=== PATIENT | male | born 1940 | race Caucasian/White ===

== ENCOUNTER 2018-10-21 15:33 | Inpatient (IN) | payer MEDICARE ==
[2018-10-21 16:10] LABS: #Basophils 0.1 thou/uL (0.0-0.2); #Eosinphils 0.4 thou/uL (0.0-0.7); #Lymphocytes 1.6 thou/uL (1.20-3.40); #Monocytes 1.3 thou/uL (0.11-0.59); #Neutrophils 12.8 thou/uL (1.40-6.50); %Basophils 0.5 % (0.0-1.0); %Eosinophils 2.7 % (0.0-10.0); %Lymphocytes 9.9 % (21.0-51.0); %Monocytes 7.9 % (0.0-10.0); %Neutrophils 79.1 % (42.0-75.0); Hemoglobin 16.2 g/dL (14.0-18.0); Mean Corpuscular HGB CONC 33.8 g/dL (32.0-36.0); Mean Corpuscular Hemoglobin 30.7 pg (27.0-31.0); Mean Corpuscular Volume 90.9 fL (78.0-98.0); Mean Platelet Volume 9.3 fL (7.4-10.4); Platelet Count 233 thou/uL (130-400); RBC Distribution Width 12.6 % (11.5-14.5); Red Blood Cell (RBC) Count 5.27 mill/uL (4.70-6.10); White Blood Cell (WBC) Count 16.2 thou/uL (4.8-10.8)
[2018-10-21] MEDS ORDERED: Aspirin Chewable 81 MG TAB ONE (16:12)
[2018-10-21] MEDS ORDERED: Enoxaparin Sodium 100 MG/ML SYRINGE ONE (16:12)
[2018-10-21 16:17] LABS: INR-International Normal Ratio 1.2; PTT 30.6 SEC (22.9-36.1); Prothrombin Time 14.7 SEC (12.0-14.7)
[2018-10-21] MEDS ORDERED: Enoxaparin Sodium 30 MG/0.3 ML SYRINGE ONE (16:17)
[2018-10-21] MEDS ORDERED: Enoxaparin Sodium 60 MG/0.6 ML SYRINGE ONE (16:17)
[2018-10-21 16:28] LABS: ALT (SGPT) 30 U/L (8-55); AST (SGOT) 25 U/L (5-34); Albumin 4.5 g/dL (3.4-4.8); Alkaline Phosphatase 59 U/L (40-150); Anion Gap 11 mmol/L (10-20); BUN (Urea Nitrogen) 16 mg/dL (8.4-25.7); Bilirubin, Total 0.8 mg/dL (0.2-1.2); CK (CPK) 401 U/L (30-200); Calc. Creatinine Clearance 0 mL/min (70-130); Calcium 9.8 mg/dL (7.8-10.44); Carbon Dioxide 23 mmol/L (23-31); Chloride 99 mmol/L (98-107); Estimated GFR-MDRD 60; Globulin 2.9 g/dL (2.4-3.5); Glucose 151 mg/dL (83-110); Potassium 3.9 mmol/L (3.5-5.1); Protein, Total 7.4 g/dL (5.8-8.1); Sodium 129 mmol/L (136-145)
--- NOTE | 2018-10-21 16:32 | RAD ---
XR Chest 1 View Portable HISTORY: Dyspnea COMPARISON: None FINDINGS: The heart size is normal. The lungs are well expanded without focal areas of consolidation, pneumothorax or pleural effusions. IMPRESSION: No radiographic evidence of acute cardiopulmonary process.
--- NOTE | 2018-10-21 17:58 | PDOC.FPRHP ---
- History of Present Illness Chief Complaint: afib with RVR History of Present Illness: 78yo male with h/o HTN, DM, HLD presented as a transfer from urgent care for afib with rvr. Pt states he was working in the yard yesterday and woke up feeling wheezy, dry cough, sinus congestion and presented to urgent care for evaluation. At the urgent care pt was found to be in afib with rvr and sent to ED. No medications were given at urgent care. He currently denies any chest pain , SOB, dizziness, headaches or vision changes. No fever/chills, cough as since resolved but still endorses slight wheeze. Pt states he was evaluated within last 2 years for "a fast heart rate" by Dr. Maldonado and was initially placed on Pradaxa and Coreg but workup as since been negative and he has been taken off both medications and started on ASA 81mg. Pt states stress test 2 years ago was negative. Boat Hop- Dr. Maldonado Primary- Dr. Hussein ([facility]) ED Course: Initial afib with RVR, rate of 122, hemodynamically stable, given ASA 325mg, therapeutic lovenox, and 20mg dilt with controlling of rate to 80s. Started on NS @125cc/hr. - Allergies/Adverse Reactions Allergies Allergy/AdvReac Type Severity Reaction Status Date / Time oyster extract Allergy Severe Anaphylaxis Verified 10/21/18 19:59 shellfish derived Allergy Severe Anaphylaxis Verified 10/21/18 19:59 - Home Medications Medication Instructions Recorded Confirmed Type Aspirin [Ecotrin] 81 mg PO DAILY 10/21/18 10/21/18 History Carvedilol 1 tab PO BID 10/21/18 10/21/18 History Fenofibrate Nanocrystallized 1 tab PO DAILY 10/21/18 10/21/18 History [Fenofibrate] Lisinopril 20 mg PO DAILY 10/21/18 10/21/18 History Pravastatin Sodium 40 mg PO HS 10/21/18 10/21/18 History metFORMIN [Glucophage] 850 mg PO BID-WM 10/21/18 10/21/18 History - History PMHx: HTN, HLD, Diabetes, pediatric asthma, allergic rhinitis PSHx: Tonsilectomy, Umbilical Hernia repar 30 years ago FHx: Dad 84- lung cancer (smoker), Mother 93- old age, Brother 49- CAD (smoker), Brother 84- Alzheimers, Brother 73- (smoker) and Diabetes Social: Smoked when young (for 7 years), Occasional Etoh use, No illicit drug use. - Review of Systems General: denies: fever/chills, weight/appetite/sleep changes, night sweats, fatigue Eyes: denies: eye pain, vision changes ENT: reports: nasal congestion. denies: rhinorrhea Respiratory: reports: cough (non productive), congestion. denies: shortness of breath Cardiovascular: denies: chest pain, palpitation, edema Gastrointestinal: denies: nausea, vomiting, diarrhea, constipation, abdominal pain, GI bleeding Genitourinary: denies: incontinence, dysuria, polyuria Skin: denies: rashes, lesions, itching Musculoskeletal: denies: pain, tenderness, stiffness Neurological: denies: numbness, syncope, weakness Psychological: denies: anxiety, depression - Vital signs BP: [142/77] HR: [93] RR: [18] Tmax: [98.2] Pox: [96]% on [RA] Wt: [90kg] - Physical Exam Constitutional: NAD, awake, alert and oriented, well developed HEENT: normocephalic and atraumatic, conjunctiva clear, grossly normal vision, grossly normal hearing Neck: supple, trachea midline Heart: RRR (occasional irregular beats but overall appears to be in sinus), normal S1/S2, no murmurs/rubs/gallops, pulses present, no edema Lungs: other (tight throughout, BL end-expiratory wheeze, no respiratory distress, no focal consolidation) Abdomen: soft, non-tender, bowel sounds present, no masses/distention Musculoskeletal: normal structure Neurological: no focal deficit, normal sensation Skin: no rash/lesions Heme/Lymphatic: no unusual bruising or bleeding Psychiatric: normal mood and affect, good judgment and insight FMR H&P: Results - Labs Result Diagrams: 10/21/18 15:56 10/21/18 15:56 Lab results: WBC 16.2 thou/uL (4.8-10.8) H 10/21/18 15:56 Hgb 16.2 g/dL (14.0-18.0) 10/21/18 15:56 Hct 47.9 % (42.0-52.0) 10/21/18 15:56 MCV 90.9 fL (78.0-98.0) 10/21/18 15:56 Plt Count 233 thou/uL (130-400) 10/21/18 15:56 Neutrophils % 79.1 % (42.0-75.0) H 10/21/18 15:56 Sodium 129 mmol/L (136-145) L 10/21/18 15:56 Potassium 3.9 mmol/L (3.5-5.1) 10/21/18 15:56 Chloride 99 mmol/L (98-107) 10/21/18 15:56 Carbon Dioxide 23 mmol/L (23-31) 10/21/18 15:56 BUN 16 mg/dL (8.4-25.7) 10/21/18 15:56 Creatinine 1.18 mg/dL (0.7-1.3) 10/21/18 15:56 Glucose 151 mg/dL (83-110) H 10/21/18 15:56 Calcium 9.8 mg/dL (7.8-10.44) 10/21/18 15:56 Total Bilirubin 0.8 mg/dL (0.2-1.2) 10/21/18 15:56 AST 25 U/L (5-34) 10/21/18 15:56 ALT 30 U/L (8-55) 10/21/18 15:56 Alkaline Phosphatase 59 U/L (40-150) 10/21/18 15:56 Creatine Kinase 401 U/L (30-200) H 10/21/18 15:56 B-Natriuretic Peptide 345.4 pg/mL (0-100) H 10/21/18 15:56 Serum Total Protein 7.4 g/dL (5.8-8.1) 10/21/18 15:56 Albumin 4.5 g/dL (3.4-4.8) 10/21/18 15:56 - EKG Interpretation EKG: Initial EKG - afib with RVR, rate 108, normal axis, no ST or T wave changes - Radiology Interpretation Chest x-ray Status: image reviewed by me (No acute CPP. Sharp recessess, no focal consolidation noted.), report reviewed by ne FMR H&P: A/P - Problem List (1) Atrial fibrillation with RVR Current Visit: Yes Status: Acute Code(s): I48.91 - UNSPECIFIED ATRIAL FIBRILLATION (2) Allergic rhinitis Current Visit: Yes Status: Chronic Code(s): J30.9 - ALLERGIC RHINITIS, UNSPECIFIED (3) Leukocytosis Current Visit: Yes Status: Acute Code(s): D72.829 - ELEVATED WHITE BLOOD CELL COUNT, UNSPECIFIED (4) Diabetes mellitus Current Visit: Yes Status: Chronic Code(s): E11.9 - TYPE 2 DIABETES MELLITUS WITHOUT COMPLICATIONS Qualifiers: Diabetes mellitus type: type 2 Diabetes mellitus half-way insulin use: without termite treater helper use Diabetes mellitus complication status: without complication Qualified Code(s): E11.9 - Type 2 diabetes mellitus without complications (5) HTN (hypertension) Current Visit: Yes Status: Chronic Code(s): I10 - ESSENTIAL (PRIMARY) HYPERTENSION Qualifiers: Hypertension type: essential hypertension Qualified Code(s): I10 - Essential (primary) hypertension (6) HLD (hyperlipidemia) Current Visit: Yes Status: Chronic Code(s): E78.5 - HYPERLIPIDEMIA, UNSPECIFIED (7) Hyponatremia Current Visit: Yes Status: Acute Code(s): E87.1 - HYPO-OSMOLALITY AND HYPONATREMIA - Plan 78yo Male with h/o HTN, HLD, DM, and allergic rhinitis presents in afib with RVR. #Afib with RVR - asxs, hemodynamically stable, no known history of afib - initial EKG afib with RVR, appears to be converted into sinus with dilt bolus - will recheck EKG - Admit to tele for monitoring - ECHO ordered - TSH WNL, trops neg - will consult Cards in AM for recs, known to Dr. Maldonado - cont home ASA #Leukocytosis, reactive vs viral URI - sxs of congestion, nonproductive cough, and BL end expiratory wheeze x1day - afebrile, CXR WNL, VSS - Duonebs x1 with q6h prn - Tessalon pearls prn - Zyrtec daily - will monitor with daily CBC and monitor clinical status #Hyponatremia, mild - Na 129 - likely hypovolemic hyponatremia - will continue IVF of NS @125cc/hr, will recheck BMP in AM # DM, non-insulin dependent - will check A1C - ACHS acuchecks, will cont home meformin # HTN - continue home lisinopril, monitor #HLD - will check Lipid Panel - continue home prava and fenofibrate Diet: HH low sodium with NPO at midnight for possible cardiac intervention VTE: Lovenox Code: Full Disposition/LOS: Admit to tele for monitoring. Monitor respiratory status. Cards consult in AM for recommendations. FMR H&P: Upper Level - Pertinent history I was present with the partner marketing intern and scribed the above HPI. I agree with the above HPI and made edits as needed. - Pertinent findings Cardio: Irregularly irregular. Normal rate Resp: Wheezing noted throughout lung villarreal. No rales or crackles noted. Ext: no edema noted HEENT: Nostrils erythemetous. Clear nasal drainage noted. Throat shows signs of post nasal drip. - Plan Date/Time: 10/21/18 8398 I, Campos Hector, PGY-3, have evaluated this patient and agree with findings/ plan as outlined by partner marketing intern resident. Pertinent changes/additions are listed here. Pt was found to be in A. fib with RVR. Was given dilt bolus and converted after. Pt reports having allergy sx's the last few days. Pt has hx of asthma when he was young. Was wheezy on exam. Will give 1x Duoneb and then juliane them q6hr PRN as needed. For his new A.fib will get ECHO, will trend trops, repeat EKG since he converted. Will consult Cardiology in the AM. Will continue home meds as needed. Will give him meds for allergy sx relief. See above plan for full details. Addendum - Attending - Attending Attestation Date/Time: 10/21/18 3297 I personally evaluated the patient and discussed the management with Dr. Caleb Rome /Tawny I agree with the History, Examination, Assessment and Plan documented above with any addition or exceptions noted below- 78yo male with h/o HTN, DM, HLD was being seen in an urgent care due to nasal congestion and wheezing since working in [employer]. Found to be in afib with RVR and sent to ER. He currently denies any chest pain, SOB, dizziness, headaches or vision changes. No fever/ chills. Denies any plapitations or syncope. States that he has never had an abnoral heart rhythms. PMH/PSH/Meds/SH reviewed and agree with resident's documentation. T98.8, P101 BP 141/97 RR16 99%RA Exam repeated by me and agree with resident's findings. Labs: WBC=16.2, H/H=16.2/47.9, Kfh=853 Ns=618, K =3.9, Cl=99, CO2=23, BUN/Cr=16/1.18, Akti=978, VQX=772.4, AST/ALT=30/59, TSH= 0.6028, ZtyH7k=8.9. EKG- afib with RVR. A/P: 1) Newly diagnosed A-fib- admit to tele; rate improved with bolus of diltiazem; monitor I/Os; echo ordered. Will contact cardiology in AM. Continue lovenox. 2) DM- continue home meds. 3) HTN- continue home meds.
[2018-10-21] MEDS ORDERED: Acetaminophen 325 MG TAB PO PRN (18:53)
[2018-10-21] MEDS ORDERED: Calcium Carbonate 500 MG ChewTAB PO PRN (18:53)
[2018-10-21] MEDS ORDERED: Benzonatate 100 MG CAP PO PRN (18:53)
[2018-10-21] MEDS ORDERED: Ondansetron ODT 4 MG TAB PO PRN (18:53)
[2018-10-21] MEDS ORDERED: Cetirizine HCl 10 MG TAB PO SCH (19:00)
[2018-10-21 19:16] VITALS: BMI 29.9
[2018-10-21 19:34] LABS: Hemoglobin A1c 6.9 % (4.0-6.0)
[2018-10-21] MEDS: Sodium Chloride 0.9% 1,000 ML IV SCH ×2 (19:44→23:05)
[2018-10-21 19:47] LABS: Cardiac Risk 3.6 (Less than 4.5)
[2018-10-21 19:48] LABS: Troponin I Less than 0.010 ng/mL (< 0.028)
[2018-10-21] MEDS: Pravastatin Sodium 40 MG TAB PO SCH (21:32)
[2018-10-21 22:43] LABS: Troponin I Less than 0.010 ng/mL (< 0.028)
[2018-10-22 05:30] LABS: #Eosinphils 0.5 thou/uL (0.0-0.7); #Lymphocytes 1.1 thou/uL (1.20-3.40); #Neutrophils 6.8 thou/uL (1.40-6.50); %Basophils 0.1 % (0.0-1.0); %Eosinophils 5.4 % (0.0-10.0); %Lymphocytes 11.4 % (21.0-51.0); %Monocytes 10.2 % (0.0-10.0); %Neutrophils 72.8 % (42.0-75.0); Hemoglobin 15.3 g/dL (14.0-18.0); Mean Corpuscular HGB CONC 33.6 g/dL (32.0-36.0); Mean Corpuscular Volume 92.3 fL (78.0-98.0); Mean Platelet Volume 9.2 fL (7.4-10.4); Platelet Count 192 thou/uL (130-400); RBC Distribution Width 12.6 % (11.5-14.5); Red Blood Cell (RBC) Count 4.93 mill/uL (4.70-6.10); White Blood Cell (WBC) Count 9.3 thou/uL (4.8-10.8)
[2018-10-22 05:51] LABS: Anion Gap 13 mmol/L (10-20); BUN (Urea Nitrogen) 12 mg/dL (8.4-25.7); Calc. Creatinine Clearance 78 mL/min (70-130); Calcium 9.2 mg/dL (7.8-10.44); Carbon Dioxide 23 mmol/L (23-31); Chloride 101 mmol/L (98-107); Estimated GFR-MDRD 71; Glucose 146 mg/dL (83-110); Potassium 3.6 mmol/L (3.5-5.1); Sodium 133 mmol/L (136-145)
--- NOTE | 2018-10-22 06:04 | PDOC.FM ---
- Subjective Subjective: Pt reports feelign great and wants to go home. No new problems at thsi time. Denies CP or palpitations, denies SOB. - Objective Vital Signs & Weight: Vital Signs (12 hours) Temp Pulse Resp BP Pulse Ox 10/22/18 02:43 98.8 F 106 H 18 139/88 96 10/21/18 23:05 98.8 F 99 18 139/66 96 10/21/18 20:57 101 H 16 99 10/21/18 20:00 98.9 F 95 22 H 141/97 H 97 10/21/18 18:52 98.8 F 86 16 154/86 H 96 Weight Weight 89.539 kg Result Diagrams: 10/22/18 04:41 10/22/18 04:41 Phys Exam - Physical Examination Constitutional: NAD HEENT: moist MMs, sclera anicteric Neck: supple, full ROM Respiratory: no wheezing, clear to auscultation bilateral Cardiovascular: no significant murmur, irregular Gastrointestinal: soft, non-tender Musculoskeletal: no edema Neurological: normal sensation, moves all 4 limbs Psychiatric: normal affect, A&O x 3 Skin: no rash, normal turgor Dx/Plan (1) Atrial fibrillation with RVR Code(s): I48.91 - UNSPECIFIED ATRIAL FIBRILLATION Status: Acute (2) Hyponatremia Code(s): E87.1 - HYPO-OSMOLALITY AND HYPONATREMIA Status: Acute (3) Leukocytosis Code(s): D72.829 - ELEVATED WHITE BLOOD CELL COUNT, UNSPECIFIED Status: Acute (4) Allergic rhinitis Code(s): J30.9 - ALLERGIC RHINITIS, UNSPECIFIED Status: Chronic (5) HLD (hyperlipidemia) Code(s): E78.5 - HYPERLIPIDEMIA, UNSPECIFIED Status: Chronic (6) HTN (hypertension) Code(s): I10 - ESSENTIAL (PRIMARY) HYPERTENSION Status: Chronic Qualifiers: Hypertension type: essential hypertension Qualified Code(s): I10 - Essential (primary) hypertension - Plan Plan: Afib with RVR A- initial EKG afib with RVR, appears to be converted into sinus with dilt bolus but then was in afib on exam this morning and on tele monitor with rate in 100's P- ECHO ordered -restart home coreg -will consult Cards, known to Dr. Maldonado -cont home ASA Hyponatremia, improved A- Na 129 -> 133. likely hypovolemic hyponatremia P- continue to monitor DM, non-insulin dependent -ACHS acuchecks, will cont home meformin HTN -continue home lisinopril, monitor Leukocytosis, reactive vs viral URI - likely reactive vs. due to URI. resolved. HLD -continue home prava and fenofibrate VTE: Lovenox Code: Full Addendum - Attending - Attending Attestation Date/Time: 10/22/182048 I personally evaluated the patient and discussed the management with Dr. Quiroga. I agree with the History, Examination, Assessment and Plan documented above with any addition or exceptions noted below. Patient sees me in the office so I am very familiar with his case. Recurrent afib- previously evaluated by Dr. Maldonado a few years ago with first bout of afib. Today his HR remains in afib but rate controlled in 90-110s with oral coreg. Appreciate cards recs for further treatment. T2DM- controlled HTN-controlled HLD- controlled Elevated BNP- no hx of CHF- ECHO pending.
[2018-10-22] MEDS: metFORMIN 850 MG TAB PO SCH ×2 (08:24→17:38)
[2018-10-22] MEDS: Aspirin 81 mg Enteric Coated Tablet PO SCH (08:34)
[2018-10-22] MEDS: Fenofibrate Nanocrystallized 145 MG TAB PO SCH (08:34)
[2018-10-22] MEDS: Cetirizine HCl 10 MG TAB PO SCH (08:34)
[2018-10-22] MEDS ORDERED: Lisinopril 20 MG TAB PO SCH (09:00)
[2018-10-22] MEDS ORDERED: Enoxaparin Sodium 40 MG/0.4 ML SYRINGE SC SCH (09:00)
[2018-10-22] MEDS ORDERED: Carvedilol 3.125 MG TAB PO SCH ×2 (09:15→21:00)
--- NOTE | 2018-10-22 14:37 | CON ---
DATE OF CONSULTATION: 10/22/2018 REASON FOR CONSULTATION: Atrial fibrillation. PRIMARY LEPIDOPTERIST: Rachael Maldonado MD PHYSICAL EXAMINATION: Mr. Davis is a 78-year-old gentleman, who went to the urgent care yesterday complaining of some difficulty breathing and was found to be in atrial fibrillation with a rapid rate. He was instructed to go to the emergency room. He was found to be in atrial fibrillation. He was admitted. PAST MEDICAL HISTORY: He has a history of atrial fibrillation, paroxysmal, with last seen by Dr. Maldonado in October of 2015; at that time, was in sinus rhythm, but had some paroxysmal atrial fibrillation. He was on aspirin and carvedilol at that time. The patient has not come back for followup since then. He has had no chest pain, pressure, heaviness, or squeezing. PHYSICAL EXAMINATION: GENERAL: This gentleman is alert and oriented, resting comfortably. VITAL SIGNS: Blood pressure 135/85, pulse is 90 and it is irregular. LUNGS: Clear. CARDIAC: Irregularly irregular. ABDOMEN: Soft, nontender. EXTREMITIES: Warm and dry. No clubbing. No cyanosis or edema. DIAGNOSTIC DATA: EKG reveals an atrial fibrillation, right bundle branch block. No acute changes. Echocardiogram is pending. The heart rate yesterday was 130. ASSESSMENT: 1. Atrial fibrillation, previously paroxysmal, now sustained. 2. Right bundle branch block. PLAN: 1. Anticoagulation. 2. Consideration for transesophageal echo and cardioversion. We will notify Dr. Maldonado. The other option would be anticoagulation followed by outpatient cardioversion at a later time. Job ID: [id number]
[2018-10-22] MEDS ORDERED: Apixaban 5 MG TAB PO SCH (18:45)
--- NOTE | 2018-10-22 18:58 | PRG ---
DATE OF SERVICE: 10/22/2018 Mr. Davis is sitting in the chair, asymptomatic. His pulse is 110 on the monitor. He has a Fitbit on and it is 100 on the Fitbit. Discussed the case with Dr. Maldonado. The patient prefers to rate control and anticoagulate the patient, and see him in the office that will be the plan. If the patient is doing well tomorrow morning, he will be released home to see Dr. Maldonado in 2 weeks. Job ID: [id number]
[2018-10-22] MEDS: Pravastatin Sodium 40 MG TAB PO SCH (19:57)
[2018-10-22] MEDS: Carvedilol 6.25 MG TAB PO SCH (19:57)
[2018-10-22] MEDS ORDERED: Enoxaparin Sodium 100 MG/ML SYRINGE SC SCH (21:00)
[2018-10-23 06:40] LABS: Anion Gap 10 mmol/L (10-20); BUN (Urea Nitrogen) 16 mg/dL (8.4-25.7); Calc. Creatinine Clearance 73 mL/min (70-130); Carbon Dioxide 25 mmol/L (23-31); Chloride 102 mmol/L (98-107); Estimated GFR-MDRD 66; Glucose 134 mg/dL (83-110); Potassium 3.6 mmol/L (3.5-5.1); Sodium 133 mmol/L (136-145)
[2018-10-23 08:03] VITALS: TEMP 98.8
[2018-10-23 08:41] LABS: Band 1 % (5-11); Eosinophils 10 % (0-10); Hemoglobin 15.1 g/dL (14.0-18.0); Lymphocytes 29 % (21-51); MDiff Complete? YES; Mean Corpuscular HGB CONC 33.1 g/dL (32.0-36.0); Mean Corpuscular Hemoglobin 30.5 pg (27.0-31.0); Mean Corpuscular Volume 92.1 fL (78.0-98.0); Mean Platelet Volume 9.5 fL (7.4-10.4); Monocytes 10 % (0-10); Neutrophil 49 % (42-75); Platelet Count 192 thou/uL (130-400); RBC Distribution Width 12.7 % (11.5-14.5); RBC Morphology Normal; Red Blood Cell (RBC) Count 4.96 mill/uL (4.70-6.10); White Blood Cell (WBC) Count 6.7 thou/uL (4.8-10.8)
[2018-10-23] MEDS: Aspirin 81 mg Enteric Coated Tablet PO SCH (08:48)
--- NOTE | 2018-10-23 08:49 | PDOC.FM ---
- Subjective Subjective: Pt feels well, no CP/palpitations, no sob, no diaphoresis, no complaitns - Objective Vital Signs & Weight: Vital Signs (12 hours) Temp Pulse Resp BP Pulse Ox 10/23/18 07:39 98.8 F 100 15 104/73 96 10/23/18 04:13 98.4 F 95 18 110/65 95 Weight Admit Weight 89.358 kg Weight 89.811 kg I&O: 10/22/18 10/23/18 10/24/18 06:59 06:59 06:59 Intake Total 1594 Output Total 1210 Balance 384 Result Diagrams: 10/23/18 05:53 10/23/18 05:53 Phys Exam - Physical Examination Constitutional: NAD HEENT: moist MMs, sclera anicteric Neck: supple, full ROM Respiratory: no wheezing, clear to auscultation bilateral Cardiovascular: no significant murmur, no rub, irregular Gastrointestinal: soft, non-tender Musculoskeletal: no edema, pulses present Neurological: non-focal, normal sensation Lymphatic: no nodes Psychiatric: normal affect, A&O x 3 Skin: no rash, normal turgor Dx/Plan (1) Atrial fibrillation with RVR Code(s): I48.91 - UNSPECIFIED ATRIAL FIBRILLATION Status: Acute (2) Hyponatremia Code(s): E87.1 - HYPO-OSMOLALITY AND HYPONATREMIA Status: Acute (3) Leukocytosis Code(s): D72.829 - ELEVATED WHITE BLOOD CELL COUNT, UNSPECIFIED Status: Acute (4) Allergic rhinitis Code(s): J30.9 - ALLERGIC RHINITIS, UNSPECIFIED Status: Chronic (5) HLD (hyperlipidemia) Code(s): E78.5 - HYPERLIPIDEMIA, UNSPECIFIED Status: Chronic (6) HTN (hypertension) Code(s): I10 - ESSENTIAL (PRIMARY) HYPERTENSION Status: Chronic Qualifiers: Hypertension type: essential hypertension Qualified Code(s): I10 - Essential (primary) hypertension - Plan Plan: Afib with RVR A- Rate controlled on coreg, anticoagulated on eliquis. Cards consulted, recs much appreciated. Echo has been performed. P- Will plan to f/u with Maldonado in 2 weeks -continue coreg and eliquis -f/u ECHO results -DC today Hyponatremia, improved A- Na 129 -> 133. likely hypovolemic hyponatremia P- encourage hydration PO DM, non-insulin dependent -ACHS acuchecks, will cont home meformin HTN -continue home lisinopril, monitor Leukocytosis, reactive vs viral URI - likely reactive vs. due to URI. resolved. HLD -continue home prava and fenofibrate VTE: Lovenox Code: Full Addendum - Attending - Attending Attestation Date/Time: 10/23/18 8025 I personally evaluated the patient and discussed the management with Dr. Quiroga. I agree with the History, Examination, Assessment and Plan documented above with any addition or exceptions noted below. Afib- now rate controlled. Home on beta kalyani and eliquis with f/u with Dr. Maldonado in 1-2 weeks. HTN, HLD, T2DM- all stable.
[2018-10-23] MEDS: Carvedilol 6.25 MG TAB PO SCH (08:50)
[2018-10-23 08:51] VITALS: BP 120/75
[2018-10-23] MEDS: Fenofibrate Nanocrystallized 145 MG TAB PO SCH (08:51)
[2018-10-23] MEDS: Cetirizine HCl 10 MG TAB PO SCH (08:51)
[2018-10-23] MEDS: metFORMIN 850 MG TAB PO SCH (08:51)
[2018-10-23] MEDS ORDERED: Apixaban 5 MG TAB PO SCH (09:00)
[2018-10-23] MEDS ORDERED: Lisinopril 20 MG TAB PO SCH (09:00)
--- NOTE | 2018-10-23 09:44 | PRG ---
DATE OF SERVICE: 10/23/2018 SUBJECTIVE: Mr. Davis is doing very well. No complaints. He feels much better. He wants to go home. OBJECTIVE: VITAL SIGNS: His blood pressure 104/73, pulse 90 and it is irregularly irregular. LUNGS: Clear. CARDIAC: Irregularly irregular. ASSESSMENT: 1. Persistent atrial fibrillation, previously paroxysmal. 2. Hypertension, blood pressure relatively low. PLAN: 1. Reduce lisinopril to 10 mg a day. 2. He is on carvedilol 6.25 mg twice a day. 3. Apixaban 5 mg twice a day. 4. Stop aspirin. 5. Follow up with Dr. Maldonado in 1 week. May need further adjustments in medicines. Ultimately if he maintains fibrillation, consideration for transesophageal echo and cardioversion. Job ID: [id number]
--- NOTE | 2018-10-25 05:19 | DIS ---
DATE OF ADMISSION: 10/21/2018 DATE OF DISCHARGE: 10/23/2018 RESIDENT: Chris Quiroga MD CONSULTS: Cardiology, Dr. Reyes. PROCEDURES: 1. On 10/21/2018, chest x-ray. Impression: No radiographic evidence of acute cardiopulmonary process. 2. On 10/24/2018, echocardiogram. Irregular rhythm. Ejection fraction is 60% to 65%. Normal right ventricular size and function. Left atrium is of normal size. Normal right atrial size. Trace mitral regurgitation is present. Aortic valve leaflets are somewhat thickened. Mild tricuspid regurgitation. DISCHARGE MEDICATIONS: 1. Metformin 850 mg p.o. b.i.d. with meals. 2. Pravastatin sodium 40 mg p.o. at bedtime. 3. Fenofibrate one tablet p.o. daily. 4. Eliquis 5 mg p.o. b.i.d. 5. Carvedilol 6.25 mg p.o. b.i.d. 6. Lisinopril 10 mg p.o. daily. DISCONTINUED MEDICATIONS: 1. Aspirin 81 mg p.o. daily. 2. Lisinopril 20 mg p.o. daily. 3. Carvedilol 3.125 mg p.o. b.i.d. PRIMARY DIAGNOSIS: Atrial fibrillation with rapid ventricular rate. SECONDARY DIAGNOSIS: 1. Hyponatremia. 2. Diabetes. 3. Hypertension. 4. Hyperlipidemia. HISTORY OF PRESENT ILLNESS/HOSPITAL COURSE: This is a 78-year-old gentleman who has history of atrial fibrillation, who presented to the emergency room and was found to be in atrial fibrillation with a rapid ventricular rate and so was admitted. The patient was given a diltiazem bolus, which converted the patient back into normal sinus rhythm. However, the patient went back into atrial fibrillation shortly thereafter. The patient was started on his home medication of Coreg as the patient reported that he had been out of this medication for a few doses, and the patient's heart rate was controlled. The patient was also seen by Cardiology and started on Eliquis and then made plans for outpatient followup with his chemical engineering intern, Dr. Maldonado giving the blessing for discharge with increased Coreg dose, Eliquis, and decreased lisinopril dose as listed above. Additionally, hospital stay was notable for an echocardiogram which has results read above, but was overall unremarkable. DISPOSITION: Stable. DISCHARGE INSTRUCTIONS: 1. Location: Home. 2. Activity: As tolerated. 3. Diet: Diabetic and heart healthy diet. 4. Followup: With Dr. Leia Hussein in [address] Doron Maldonado in 7 days. Job ID: [id number]
== END 2018-10-23 12:36 | disposition home or self-care (01) | DRG 309 ==
LOC: ERS 15:33 → 2SW 18:18
PROVIDERS: ADMIT Family Medicine; ATTEND Family Medicine
DX: I48.1 Persistent atrial fibrillation (principal); E87.1 Hypo-osmolality and hyponatremia; I48.0 Paroxysmal atrial fibrillation; E78.5 Hyperlipidemia, unspecified; E78.00 Pure hypercholesterolemia, unspecified; I10 Essential (primary) hypertension; J45.909 Unspecified asthma, uncomplicated; D72.829 Elevated white blood cell count, unspecified; I45.10 Unspecified right bundle-branch block; Z91.013 Allergy to seafood; Z87.891 Personal history of nicotine dependence; Z79.899 Other long term (current) drug therapy; Z79.82 Long term (current) use of aspirin; Z79.84 Long term (current) use of oral hypoglycemic drugs; E11.9 Type 2 diabetes mellitus without complications
CPT/HCPCS: 36415; 36416; 71045; 80048; 80053; 80061; 82550; 83036; 83880; 84443; 84484; 85025; 85610; 85730; 93005; 93306; 94640; 96361; 96372; 96374; J1650; J7620

== ENCOUNTER 2018-12-20 10:56 | Day surgery (SDC) | payer MEDICARE, OTHER ==
[2018-12-19 11:08] VITALS: BMI 27.2
[2018-12-20] MEDS ORDERED: PROPOFOL 200 MG/20 ML VIAL ONE (11:22)
[2018-12-20] MEDS ORDERED: Lidocaine 1% PF 5 ML VIAL ONE ×2 (11:22→12:32)
[2018-12-20 11:56] LABS: #Eosinphils 0.2 thou/uL (0.0-0.7); #Lymphocytes 1.8 thou/uL (1.20-3.40); #Monocytes 0.7 thou/uL (0.11-0.59); #Neutrophils 4.4 thou/uL (1.40-6.50); %Basophils 0.6 % (0.0-1.0); %Lymphocytes 25.2 % (21.0-51.0); %Neutrophils 61.2 % (42.0-75.0); Hemoglobin 14.6 g/dL (14.0-18.0); Mean Corpuscular HGB CONC 32.4 g/dL (32.0-36.0); Mean Corpuscular Volume 92.5 fL (78.0-98.0); Mean Platelet Volume 9.8 fL (7.4-10.4); Platelet Count 211 thou/uL (130-400); RBC Distribution Width 12.4 % (11.5-14.5); Red Blood Cell (RBC) Count 4.86 mill/uL (4.70-6.10); White Blood Cell (WBC) Count 7.2 thou/uL (4.8-10.8)
[2018-12-20 12:12] LABS: Anion Gap 10 mmol/L (10-20); BUN (Urea Nitrogen) 13 mg/dL (8.4-25.7); Calc. Creatinine Clearance 70 mL/min (70-130); Carbon Dioxide 27 mmol/L (23-31); Chloride 103 mmol/L (98-107); Estimated GFR-MDRD 65; Glucose 114 mg/dL (83-110); Potassium 4.1 mmol/L (3.5-5.1); Sodium 136 mmol/L (136-145)
[2018-12-20] MEDS ORDERED: Fentanyl 100 MCG/2 ML VIAL ONE (12:16)
[2018-12-20] MEDS ORDERED: PROPOFOL 0 ML ONE (12:26)
[2018-12-20] MEDS ORDERED: Midazolam HCl 2 mg/2 ml Vial ONE (12:26)
[2018-12-20] MEDS ORDERED: PROPOFOL 40 ML ONE (12:31)
--- NOTE | 2018-12-20 15:58 | OP ---
DATE OF PROCEDURE: 12/20/18 SURGEON: Rachael Maldonado M.D. INDICATION FOR PROCEDURE: 78-year-old gentleman who was seen in the Emergency Room back in October with atrial fibrillation w ith rapid ventricular response and shortness of breath. He was given medications and was seen in the office. Was noted to still be in atrial fibrillation. He had better rate control. Symptoms had somewh at improved but he still complained of some shortness of breath with significant exertion. In the off ice at the end of October his atrial fibrillation was still noted and his heart rate was in the 70s . He had been placed Eliquis but could not tolerate this. He was then switched over to Pradaxa. He re mained on Metformin, Lisinopril, Coreg, aspirin and Pravastatin as well as fenofibrate. He was advise d to at least try one attempt at electrical cardioversion of his atrial fibrillation after he had bee n anticoagulated. He has been anticoagulated since he was seen in the office on 11/04/18. He has been on Pradaxa. He was seen today again and there have been no changes. He is still doing relatively well . We decided to proceed with cardioversion without doing KASIE since he had been anticoagulated for amaris ost eight weeks. CARDIOVERSION The patient was taken to the recovery area where he underwent short acting propofol. Using one attempt at 200 joules, he was successfully converted back to sinus rhythm with a heart rate in the 70s. There were no difficulties or complications encountered.
--- NOTE | 2018-12-21 04:49 | DIS ---
DATE OF ADMISSION: 12/20/2018 DATE OF DISCHARGE: 12/20/2018 HISTORY OF PRESENT ILLNESS: He was seen in the outpatient facility today to undergo an elective procedure. His diagnosis was atrial fibrillation. His other diagnoses include hypertension, hypercholesterolemia. He has type 2 diabetes. DISCHARGE DIAGNOSES: 1. Hypertension. 2. Hypercholesterolemia. 3. Type 2 diabetes. PROCEDURE: Successful cardioversion of atrial fibrillation back to sinus rhythm with 1 attempt at 200 joules. DISCHARGE MEDICATIONS: Include: 1. Aspirin 81 mg daily. 2. Pravastatin 40 mg daily. 3. Coreg 6.25 mg b.i.d. 4. Lisinopril 10 mg daily. 5. Metformin HCL 800 mg twice daily. 6. Fenofibrate 145 mg daily. 7. Pradaxa 150 mg twice daily. PLAN: I will see him back in the office in the next 2-3 weeks and determine whether or not we will continue him with rate control and whether or not he needs further antiarrhythmic medications for control of the atrial fibrillation. Also, would advise he undergo stress testing in the near future with the next 2 to 4 weeks since he did have a negative stress test about 2 years ago, but one of the etiologies obviously of atrial fibrillation with the underlying coronary artery disease and ischemia. Otherwise, he tolerated the procedure well without difficulties or complications and as noted, I will see him back in the office in a couple weeks. Job ID: [id number]
--- NOTE | 2018-12-22 16:23 | EKG ---
Test Reason : PRE-CARDIOVERSION Blood Pressure : / mmHG Vent. Rate : 068 BPM Atrial Rate : 340 BPM P-R Int : 000 ms QRS Dur : 138 ms QT Int : 414 ms P-R-T Axes : 000 074 004 degrees QTc Int : 440 ms Atrial fibrillation Right bundle branch block Abnormal ECG When compared with ECG of 21-OCT-2018 15:42, Vent. rate has decreased BY [address] Harish MALAGON ([id number]) on 12/22/2018 4:23:23 PM Referred By: KATIE Confirmed By:DR. Harish MALAGON
== END 2018-12-20 14:32 | disposition home or self-care (01) ==
LOC: CCL 10:56
PROVIDERS: ATTEND Internal Medicine Cardiovascular Disease
PROC: 5A2204Z Restoration of Cardiac Rhythm, Single (ICD-10-PCS; principal; 2018-12-20)
DX: I48.0 Paroxysmal atrial fibrillation (principal); I10 Essential (primary) hypertension; E78.2 Mixed hyperlipidemia; E11.9 Type 2 diabetes mellitus without complications; E78.00 Pure hypercholesterolemia, unspecified; Z79.01 Long term (current) use of anticoagulants; Z79.84 Long term (current) use of oral hypoglycemic drugs; Z79.899 Other long term (current) drug therapy; Z88.8 Allergy status to other drugs, medicaments and biological substances; Z91.013 Allergy to seafood
CPT/HCPCS: 80048; 85025; 92960; 93005; 93010; J2001; J2250; J2704; J3010

== ENCOUNTER 2019-01-17 09:39 | Day surgery (SDC) | payer MEDICARE, OTHER ==
[2019-01-16 14:33] VITALS: BMI 27.2
[2019-01-17 10:28] LABS: #Basophils 0.1 thou/uL (0.0-0.2); #Eosinphils 0.2 thou/uL (0.0-0.7); #Lymphocytes 1.6 thou/uL (1.20-3.40); #Monocytes 0.7 thou/uL (0.11-0.59); #Neutrophils 4.4 thou/uL (1.40-6.50); %Basophils 1.3 % (0.0-1.0); %Eosinophils 2.9 % (0.0-10.0); %Lymphocytes 22.3 % (21.0-51.0); %Neutrophils 63.5 % (42.0-75.0); Hemoglobin 14.9 g/dL (14.0-18.0); Mean Corpuscular HGB CONC 33.4 g/dL (32.0-36.0); Mean Corpuscular Hemoglobin 30.7 pg (27.0-31.0); Mean Platelet Volume 9.6 fL (7.4-10.4); Platelet Count 216 thou/uL (130-400); RBC Distribution Width 12.3 % (11.5-14.5); Red Blood Cell (RBC) Count 4.86 mill/uL (4.70-6.10)
[2019-01-17] MEDS ORDERED: PROPOFOL 20 ML ONE (10:49)
[2019-01-17 10:51] LABS: Anion Gap 9 mmol/L (10-20); BUN (Urea Nitrogen) 23 mg/dL (8.4-25.7); Calc. Creatinine Clearance 52 mL/min (70-130); Carbon Dioxide 30 mmol/L (23-31); Chloride 102 mmol/L (98-107); Estimated GFR-MDRD 47; Glucose 123 mg/dL (83-110); Potassium 4.6 mmol/L (3.5-5.1); Sodium 136 mmol/L (136-145)
--- NOTE | 2019-01-17 19:56 | OP ---
DATE OF PROCEDURE: 01/17/19 SURGEON: Rachael Maldonado M.D. PREOPERATIVE DIAGNOSIS: Atrial fibrillation. PROCEDURE: Electrical cardioversion. INDICATION FOR PROCEDURE: This is a 78-year-old gentleman with atrial fibrillation. He was advised to undergo cardioversion of his atrial fibrillation after he had been placed on Multaq. He is on oral anticoagulation. He continu es to be in atrial fibrillation. CARDIOVERSION The patient was taken to the recovery area where he underwent short acting propofol. Using one attemp t at 200 joules, he was successfully converted back to sinus rhythm. There were no difficulties or co mplications encountered.
--- NOTE | 2019-01-18 03:14 | DIS ---
DATE OF ADMISSION: 01/17/2019 DATE OF DISCHARGE: 01/17/2019 Date of outpatient procedure was 01/17/2019. ADMITTING DIAGNOSES: Atrial fibrillation, also has a history of diabetes and hypertension, and hypercholesterolemia. DISCHARGE DIAGNOSES: Atrial fibrillation, also has a history of diabetes and hypertension, and hypercholesterolemia. He was successfully converted from his atrial fibrillation back to sinus rhythm. PROCEDURES IN HOSPITAL: Include electrocardioversion with atrial fibrillation to sinus rhythm. DISCHARGE MEDICATIONS: Include; 1. Fenofibrate 145 mg once a day. 2. Metformin/HCL 850 mg one b.i.d. 3. Lisinopril 10 mg daily. 4. Carvedilol 6.25 mg b.i.d. 5. Pravastatin 40 mg daily. 6. Multaq 400 mg one twice a day. 7. Pradaxa 150 mg twice a day. FOLLOWUP: His followup will be with me in 1 month in the office. He will continue his routine follow up with primary care physician, Dr. Leia Hussein. HOSPITAL COURSE: He was seen in the outpatient facility, where he underwent electrocardioversion using short acting propofol with one attempt at 200 joules. He was successfully converted back to sinus rhythm without difficulties or complications. Job ID: [id number]
== END 2019-01-17 12:36 | disposition home or self-care (01) ==
LOC: CCL 09:39
PROVIDERS: ATTEND Internal Medicine Cardiovascular Disease
PROC: 5A2204Z Restoration of Cardiac Rhythm, Single (ICD-10-PCS; principal; 2019-01-17)
DX: I48.0 Paroxysmal atrial fibrillation (principal); I10 Essential (primary) hypertension; E11.9 Type 2 diabetes mellitus without complications; E78.2 Mixed hyperlipidemia; E78.00 Pure hypercholesterolemia, unspecified; Z79.02 Long term (current) use of antithrombotics/antiplatelets; Z79.84 Long term (current) use of oral hypoglycemic drugs; Z79.899 Other long term (current) drug therapy; Z88.8 Allergy status to other drugs, medicaments and biological substances; Z91.013 Allergy to seafood
CPT/HCPCS: 80048; 85025; 92960; 93005; 93010; J2704

== ENCOUNTER 2019-12-03 07:30 | Outpatient (CLI) | payer MEDICARE, OTHER ==
[2019-12-03 17:23] LABS: Hemoglobin 14.9 g/dL (14.0-18.0); Mean Corpuscular HGB CONC 32.9 G/DL (32.0-36.0); Mean Corpuscular Hemoglobin 29.7 PG (27.0-33.0); Mean Corpuscular Volume 90.2 fl (80.0-100.0); Mean Platelet Volume 11.7 fl (7.4-10.4); Platelet Count 242 10x3/uL (130-400); RBC Distribution Width 13.5 % (11.5-14.5); Red Blood Cell (RBC) Count 5.02 10x6/uL (4.40-5.80); White Blood Cell (WBC) Count 8.5 10x3/uL (4.5-11.0)
[2019-12-03 17:25] LABS: Anion Gap 15 mmol/L (10-20); BUN (Urea Nitrogen) 23 mg/dL (8.4-25.7); Calc. Creatinine Clearance 0 mL/min (70-130); Calcium 9.5 mg/dL (7.8-10.44); Carbon Dioxide 25 mmol/L (23-31); Chloride 101 mmol/L (98-107); Estimated GFR-MDRD 50; Glucose 116 mg/dL (83-110); Potassium 4.4 mmol/L (3.5-5.1); Sodium 137 mmol/L (136-145)
[2019-12-03 17:34] LABS: INR-International Normal Ratio 1.7; PTT 49.4 sec (22.0-33.0); Prothrombin Time 17.1 sec (9.5-12.1)
[2019-12-04 12:52] LABS: SARS-CoV-2 MS2 Positive; SARS-CoV-2 N Gene Negative; SARS-CoV-2 S Gene Negative; SARS-CoV-2 by NAA Not Detected (NotDetected); SARS-CoV-2 orf1ab Negative
== END 2019-12-03 07:31 | disposition home or self-care (01) ==
LOC: LABBT 07:30
PROVIDERS: ATTEND Internal Medicine Cardiovascular Disease
DX: Z01.818 Encounter for other preprocedural examination (principal); I48.91 Unspecified atrial fibrillation; Z20.828 Contact with and (suspected) exposure to other viral communicable diseases
CPT/HCPCS: 80048; 85027; 85610; 85730; 93005; U0003; 87635; 93010

== ENCOUNTER 2019-12-08 08:21 | Observation (INO) | payer MEDICARE, OTHER ==
[2019-12-08] MEDS ORDERED: Ondansetron PF 4 MG/2 ML Vial ONE (09:35)
[2019-12-08] MEDS ORDERED: Dexamethasone 20 MG/5 ML VIAL ONE (09:35)
[2019-12-08] MEDS ORDERED: PROPOFOL 200 MG/20 ML VIAL ONE (09:35)
[2019-12-08] MEDS ORDERED: Rocuronium Bromide 10 MG/ML (10ML VIAL) ONE (09:35)
[2019-12-08] MEDS ORDERED: Lidocaine 1% PF 5 ML VIAL ONE (09:35)
[2019-12-08] MEDS ORDERED: Heparin 25,000 units/D5W 500 ML ONE (10:44)
[2019-12-08] MEDS ORDERED: Heparin 10,000 UNITS/ 10 ML VIAL ONE (10:44)
[2019-12-08] MEDS ORDERED: Lidocaine 1% (PF) 30 ML VIAL ONE (10:45)
[2019-12-08] MEDS ORDERED: Fentanyl 100 MCG/2 ML VIAL ONE (11:24)
[2019-12-08] MEDS ORDERED: Phenylephrine 10 MG/ML VIAL ONE (12:16)
[2019-12-08] MEDS ORDERED: Isoproterenol 0.2 MG/1 ML AMP ONE (13:48)
[2019-12-08] MEDS ORDERED: SUGAMMADEX SODIUM 200 MG/2 ML VIAL ONE (14:12)
[2019-12-08] MEDS ORDERED: Protamine Sulfate 50 MG/5 ML VIAL ONE (14:24)
[2019-12-08] MEDS ORDERED: Rivaroxaban 10 MG TAB PO SCH (21:00)
[2019-12-08] MEDS ORDERED: Atorvastatin Calcium 10 MG TAB PO SCH (21:00)
[2019-12-08] MEDS ORDERED: Ketorolac Tromethamine 30 MG/ML VIAL IVP PRN (21:20)
[2019-12-08 23:55] VITALS: BMI 29.6
[2019-12-09] MEDS ORDERED: metFORMIN 850 MG TAB PO SCH (08:00)
[2019-12-09] MEDS ORDERED: Fenofibrate Nanocrystallized 145 MG TAB PO SCH (09:00)
[2019-12-09] MEDS ORDERED: Lisinopril 10 MG TAB PO SCH (09:00)
[2019-12-09] MEDS ORDERED: Carvedilol 6.25 MG TAB PO SCH (09:00)
--- NOTE | 2019-12-09 09:46 | OP ---
DATE OF PROCEDURE: 12/08/2019 PROCEDURES PERFORMED: Electrophysiology study and radiofrequency ablation. PRIMARY CARE PHYSICIAN: Dr. Leia Hussein. REASON FOR PROCEDURE: Mr. Davis is a 79-year-old male with prior history of persistent atrial fibrillation. Repeat cardioversions in the past, he also failed Multaq therapy, preserved LVEF, hypertension, diabetes. He has been anticoagulated with Xarelto prior to the procedure. He is here for pulmonary venous isolation procedure. DESCRIPTION OF PROCEDURE: The patient received general anesthesia by anesthesia specialist. After adequate level of sedation achieved, both femoral venous area was prepped, draped, and anesthetized using subcutaneous lidocaine. Under ultrasound guidance, both left and right femoral veins were cannulated x2. On the left side, an 8-[place] and 11-[place] sheaths were used to advance a DecaNav catheter and intracardiac echocardiogram probe into the right atrium. The intracardiac echo probe was used to monitor the transeptal procedures, catheter manipulation, and the pericardial status throughout the case. The DecaNav catheter was used to obtain a 3D map of the right atrium, His bundle, cavotricuspid isthmus, and CS image. Eventually, it was placed into the CS position. Pacing, mapping, and recording were performed in each location including pacing the left atrium via the CS. At the end of the case, the left ventricle was also paced with the ablation catheter to establish evidence for lacking of accessory pathway. Following IC echo findings were noted. Baseline rhythm was atrial fibrillation, cycle length noted 560 milliseconds, QRS 56 milliseconds, QT 395 milliseconds, HV 37 milliseconds. After latter-day of sinus rhythm, AV Wenckebach cycle length was 290 milliseconds on Isuprel. Retrograde Wenckebach cycle length was 310 milliseconds. AV hien ERP was 600/240 milliseconds. No atrial arrhythmia was reinducible after latter-day of sinus rhythm. Following this through the right femoral venous access, two SL1 sheaths were introduced, which were used to perform transseptal puncture with the help of a powered [employer] Domain catheter. Prior to the puncture, IV heparin was started in a bolus and drip fashion and was adjusted periodically to keep ACT over 350. Following that through the SL1 sheath, a ThermoCool SFST and a 20-pole deflectable Lasso catheter were advanced to the left atrium. 3D map of left atrium was obtained. Some moderate scarring and enlargement was noted throughout the left atrium. 4 pulmonary veins were noted two on each site. Pulmonary venous isolation procedure was performed with total of 87 lesions delivered at total duration of 3 minutes and 26 seconds at 40 fields. Superior and inferior posterior line was also withdrawn to isolate the posterior wall. Standard pulmonary venous isolation was performed. Following that, the patient remained in atrial fibrillation; therefore, the inferior wall and the base of the left atrium were isolated over CS roof. Also additional lesions were placed in the anterior inferior septal area. Eventually, cardioversion was performed to restore sinus rhythm. Following that, the ablation catheter was advanced to the left ventricle and LV pacing was performed to establish VA Wenckebach as well as to rule out accessory pathway. Following that, Isuprel was initiated at 10 mcg, many connections were reablated. The posterior wall and all pulmonary veins remained isolated. Burst atrial pacing did not reinduce atrial arrhythmias. The catheter was withdrawn from the left side, and heparin was stopped and reversed with protamine. The femoral venous access site was closed with Vascade closure device under ultrasound monitoring. At the end of the case, the baseline small pericardial effusion and cardiac silhouette did not change. CONCLUSION: 1. Atrial fibrillation baseline. 2. Successful pulmonary venous isolation as well as posterior wall isolation performed. 3. Sinus rhythm restored with external shock. 4. Additional inferior and basal left atrial lesions as well as ablation in the septal area was performed for fractionated potentials. 5. No reinducible atrial arrhythmia at the end of the case and no significant PAC burden was seen at the end of the procedure. 6. Small baseline pericardial effusion without hemodynamic significance unchanged during the procedure. PLAN: Resume anticoagulation and monitor for recurrent arrhythmias. Job ID: [id number] [facility]
[2019-12-09 12:26] VITALS: BP 142/73; TEMP 98.2
--- NOTE | 2019-12-09 23:44 | EKG ---
Test Reason : POSTOP Blood Pressure : / mmHG Vent. Rate : 078 BPM Atrial Rate : 078 BPM P-R Int : 168 ms QRS Dur : 130 ms QT Int : 420 ms P-R-T Axes : 063 049 -04 degrees QTc Int : 478 ms Normal sinus rhythm Right bundle branch block Abnormal ECG Confirmed by Caleb WILSON ([id number]) on 12/09/2019 11:43:58 PM Referred By: [facility] Confirmed By:Caleb WILSON
== END 2019-12-09 12:20 | disposition home or self-care (01) ==
LOC: CCL 08:21 → 2NO 09:16
PROVIDERS: ADMIT Internal Medicine Cardiovascular Disease; ATTEND Internal Medicine Cardiovascular Disease
PROC: 4A023FZ Measurement of Cardiac Rhythm, Percutaneous Approach (ICD-10-PCS; principal; 2019-12-08)
PROC: 4A0234Z Measurement of Cardiac Electrical Activity, Percutaneous Approach (ICD-10-PCS; 2019-12-08)
PROC: 02583ZZ Destruction of Conduction Mechanism, Percutaneous Approach (ICD-10-PCS; 2019-12-08)
PROC: 02K83ZZ Map Conduction Mechanism, Percutaneous Approach (ICD-10-PCS; 2019-12-08)
PROC: 4A023FZ Measurement of Cardiac Rhythm, Percutaneous Approach (ICD-10-PCS; 2019-12-08)
PROC: 4A0234Z Measurement of Cardiac Electrical Activity, Percutaneous Approach (ICD-10-PCS; 2019-12-08)
PROC: 02583ZZ Destruction of Conduction Mechanism, Percutaneous Approach (ICD-10-PCS; 2019-12-08)
PROC: 02K83ZZ Map Conduction Mechanism, Percutaneous Approach (ICD-10-PCS; 2019-12-08)
DX: I48.19 Other persistent atrial fibrillation (principal); I10 Essential (primary) hypertension; E11.9 Type 2 diabetes mellitus without complications; Z79.84 Long term (current) use of oral hypoglycemic drugs; Z79.899 Other long term (current) drug therapy; Z88.8 Allergy status to other drugs, medicaments and biological substances; Z91.013 Allergy to seafood
CPT/HCPCS: 76942; 85347 ×2; 92960; 93005; 93613; 93623; 93655; 93656; 93662; C1732 ×3; C1759; 93010; J1100; J1644; J2001; J2370; J2405; J2704; J2720; J3010

== ENCOUNTER 2022-12-25 14:43 | Outpatient (CLI) | payer MEDICARE, OTHER ==
[2022-12-25 15:54] LABS: #Basophils 0.1 10x3/uL (0.0-0.2); #Eosinphils 0.3 10x3/uL (0.0-0.5); #Monocytes 0.9 10x3/uL (0.0-1.1); #Neutrophils 5.1 10x3/uL (1.5-8.4); %Basophils 0.7 % (0.0-2.0); %Eosinophils 3.2 % (0.0-6.0); %Lymphocytes 24.4 % (18.0-47.0); %Monocytes 10.2 % (0.0-10.0); %Neutrophils 61.1 % (40.0-75.0); Hematocrit 41.3 % (38.8-50.0); Hemoglobin 13.6 g/dL (13.5-17.5); Mean Corpuscular HGB CONC 32.9 g/dL (32.0-36.0); Mean Corpuscular Hemoglobin 28.9 pg (27.0-33.0); Mean Corpuscular Volume 87.9 fl (81.2-95.1); Mean Platelet Volume 11.6 fl (7.4-10.4); Platelet Count 303 10x3/uL (150-450); RBC Distribution Width 13.2 % (11.5-14.5); White Blood Cell (WBC) Count 8.3 10x3/uL (3.5-10.5)
[2022-12-25 16:33] LABS: ALT (SGPT) 25 U/L (8-55); AST (SGOT) 23 U/L (5-34); Albumin 4.3 g/dL (3.4-4.8); Alkaline Phosphatase 72 U/L (40-110); Anion Gap 16 mmol/L (10-20); BUN (Urea Nitrogen) 15 mg/dL (8.4-25.7); Bilirubin, Total 0.4 mg/dL (0.2-1.2); Calc. Creatinine Clearance 0 mL/min (70-130); Calcium 9.8 mg/dL (7.8-10.44); Carbon Dioxide 24 mmol/L (23-31); Chloride 98 mmol/L (98-107); Estimated GFR 70; Globulin 2.6 g/dL (2.4-3.5); Glucose 180 mg/dL (83-110); Potassium 4.4 mmol/L (3.5-5.1); Protein, Total 6.9 g/dL (5.8-8.1); Sodium 134 mmol/L (136-145)
== END 2022-12-25 14:44 | disposition home or self-care (01) ==
LOC: LABBT 14:43
PROVIDERS: ATTEND Surgery
DX: Z01.818 Encounter for other preprocedural examination (principal); K42.9 Umbilical hernia without obstruction or gangrene
CPT/HCPCS: 80053; 85025; 93005; 93010

== ENCOUNTER 2023-01-01 06:49 | Day surgery (SDC) | payer MEDICARE, OTHER ==
[2022-12-25 15:19] VITALS: BMI 27.5
[2023-01-01] MEDS ORDERED: PROPOFOL 20 ML ONE (07:58)
[2023-01-01] MEDS ORDERED: Bupivacaine 0.25% HCL 30 ML VIAL ONE (08:40)
[2023-01-01] MEDS ORDERED: EPINEPHrine 1 MG/ML VIAL ONE (08:40)
[2023-01-01] MEDS ORDERED: fentaNYL PF 100 MCG/2 ML SYRINGE ONE (08:45)
[2023-01-01] MEDS ORDERED: Sodium Chloride 0.9% 100 ML ONE (08:59)
[2023-01-01] MEDS ORDERED: CEFAZOLIN 2 GM VIAL ONE (08:59)
[2023-01-01] MEDS ORDERED: Glycopyrrolate 0.2 MG/ML 5 ML SYRINGE ONE ×3 (09:12→09:31)
[2023-01-01] MEDS ORDERED: ePHEDrine Sulfate 50 MG/10 ML VIAL ONE (09:12)
[2023-01-01] MEDS ORDERED: NEOSTIGMINE 3 MG/3 ML SYR 3 MG/3 ML SYRINGE ONE ×3 (09:12→10:26)
[2023-01-01] MEDS ORDERED: Ondansetron PF 4 MG/2 ML Vial ONE (09:12)
[2023-01-01] MEDS ORDERED: Lidocaine 1% PF 5 ML VIAL ONE (09:12)
[2023-01-01] MEDS ORDERED: Rocuronium Bromide 10 MG/ML (10ML VIAL) ONE ×2 (09:12→10:49)
[2023-01-01] MEDS ORDERED: Labetalol HCl 100 MG/20 ML VIAL ONE ×2 (09:12→09:43)
[2023-01-01] MEDS ORDERED: PROPOFOL 200 MG/20 ML VIAL ONE (09:12)
[2023-01-01] MEDS ORDERED: Dexamethasone 4 mg/ml Vial ONE (09:23)
[2023-01-01] MEDS ORDERED: PHENYLEPHRINE-NS 100 MCG/ML 10 ML SYRINGE ONE (09:23)
[2023-01-01] MEDS ORDERED: fentaNYL 50 mcg/mL 1 mL Vial ONE ×3 (10:58→11:37)
[2023-01-01] MEDS ORDERED: HYDROcodone/Acetaminophen 5/325 mg Tablet ONE (12:35)
== END 2023-01-01 13:49 | disposition home or self-care (01) ==
LOC: SDC 06:49
PROVIDERS: ATTEND Surgery
PROC: 0WUF4JZ Supplement Abdominal Wall with Synthetic Substitute, Percutaneous Endoscopic Approach (ICD-10-PCS; principal; 2023-01-01)
DX: K43.9 Ventral hernia without obstruction or gangrene (principal); E11.9 Type 2 diabetes mellitus without complications; I10 Essential (primary) hypertension; E78.00 Pure hypercholesterolemia, unspecified; Z79.899 Other long term (current) drug therapy; Z79.82 Long term (current) use of aspirin; Z79.84 Long term (current) use of oral hypoglycemic drugs
CPT/HCPCS: 49593; A4314; J0171; J3010; C1781; J1100; J2405; J2704; J3490; S0020